=== PATIENT | male | born 1960 | race American Indian/Alaskan Native ===

== ENCOUNTER 2020-10-19 12:43 | Emergency (ER) | payer MEDICARE ==
[2020-10-19] MEDS ORDERED: LIDOCAINE DRIP 2,000 MG/500 ML BAG IV ONE (12:53)
[2020-10-19] MEDS ORDERED: ATROPINE 0.1% (1 MG/10 ML) CARDIAC SYRINGE ONE (12:57)
[2020-10-19] MEDS ORDERED: LIDOCAINE/D5W 2 GM/500 ML (0.4%) DRIP IV ONE (12:57)
[2020-10-19] MEDS ORDERED: SODIUM BICARB 8.4% 50 MEQ/50 ML SYRINGE IV ONE ×2 (12:57→17:50)
[2020-10-19] MEDS ORDERED: AMIODARONE 150 MG/3 ML INJ IV ONE (12:57)
[2020-10-19] MEDS ORDERED: EPINEPHrine 1 MG/10 ML SYRINGE ONE ×2 (12:57→17:50)
[2020-10-19] MEDS ORDERED: LIDOCAINE PF 100 MG/5 ML (CARDIAC SYRINGE) IV ONE (12:57)
[2020-10-19] MEDS ORDERED: DOPamine/D5W 800 MG/250 ML DRIP IV ONE (12:57)
[2020-10-19] MEDS ORDERED: HEPARIN 10,000 UNITS/10 ML VIAL ONE (13:30)
[2020-10-19] MEDS ORDERED: HEPARIN/ 0.45% NACL DRIP 25,000 UNIT/500 ML BAG ONE (13:30)
[2020-10-19] MEDS ORDERED: NORepinephrine/NS 4 MG-250 ML 4 MG/250 ML BAG IV ONE (13:30)
[2020-10-19] MEDS ORDERED: HEPARIN 10,000 UNITS/10 ML VIAL IV ONE (13:31)
[2020-10-19] MEDS ORDERED: ASPIRIN 325 MG TAB FEEDTUBE ONE (13:32)
--- NOTE | 2020-10-19 13:37 | Emergency Department Report ---
HPI - General Chief Complaint: Cardiac Arrest/CPR - HPI HPI: Room 22 The patient is a 61-year-old male brought in by private vehicle in cardiac arrest. Per the person that brought the patient to the hospital they had been talking when he looked over the patient had lost consciousness and had sonorous respirations. Patient was brought to the emergency department by private vehicle and immediately rushed back to her room. ACLS protocols were initiated and the patient was intubated by myself. Patient had several rounds of fine V. fib requiring defibrillation. There were multiple ROSC's which eventually became bradycardic and then PEA. Patient was eventually paced transcutaneously and with pressors was found to have a BP of 120/100. Cardiology was consulted and the decision to take the patient to the [facility] was made The person that brought the patient in with the patient's cousin. He states that the patient was in his usual state of health not complaining about any pain. States that they were driving in the car laughing and joking and then he noticed that the patient was no longer speaking. He shook the patient and the patient appeared to come to but then slumped back over. The cousin states that he threw some water in the patient's face when the patient did not respond to control to the emergency department ED Past Medical Hx - Past Medical History Previous Medical History?: No - Surgical History Past Surgical History?: No - Family History Family history: no significant - Social History Smoking Status: Unknown if ever smoked Substance Use Type: None ED Review of Systems ROS: Stated complaint: CARDIAC ARREST Other details as noted in HPI Comment: Unobtainable due to pts medical conditions Physical Exam - Physical Exam Physical Exam: GENERAL: The patient is well-developed well-nourished male lying on stretcher unresponsive. [] HEENT: Normocephalic. Atraumatic. NECK: Trachea midline CHEST/LUNGS: No respirations. Breath sounds equal bilaterally after intubation by myself HEART/CARDIOVASCULAR: No heart sounds ABDOMEN: Abdomen is soft SKIN: There is no rash. There is no edema. There is no diaphoresis. NEURO: GCS 3 MUSCULOSKELETAL: There is no evidence of acute injury. ED Course - Consultations Consultation #1: 10/19/20 13:24 Case discussed with foreign exchange student coordinator Dr. Steward- will take to [facility]. Heparin and aspirin Consultation #2: 10/19/20 13:42 Patient lost pulse. When pacer was turned off, the underlying rhythm revealed asystole, further resuscitative efforts deemed futile. Patient - Intubation Time Out Performed: No Laryngoscope: fiberoptic video scope Size: 3 Assist Device Used: fiberoptic device ET Tube Size: 8 Tube Secured Depth (cm): 24 Tube Secured Location: lips Tube Placement Confirmation: visualized tube passing t, equal breath sounds bilat, no breath sounds over epi Intubation Complications: other (First attempt led to esophageal intubation. Second attempt done using glidescope was successful) ED Medical Decision Making - Differential Diagnosis Cardiac arrest Critical care attestation.: If time is entered above; I have spent that time in minutes in the direct care of this critically ill patient, excluding procedure time. ED Disposition Clinical Impression: Cardiac arrest Disposition: DC-20 Is pt being admited?: No Does the pt Need Aspirin: No Condition: Poor Time of Disposition: 13:53 (Patient )
[2020-10-19] MEDS ORDERED: HEPARIN/ 0.45% NACL DRIP 25,000 UNIT/500 ML BAG IV SCH (14:00)
[2020-10-19] MEDS ORDERED: NORepinephrine/NS 4 MG-250 ML 4 MG/250 ML BAG IV SCH (14:00)
[2020-10-19] MEDS ORDERED: DEXTROSE 50% IN WATER (25GM) 50 ML SYRINGE IV ONE (17:50)
== END 2020-10-19 19:42 ==
LOC: ED 12:43
DX: I46.9 Cardiac arrest, cause unspecified (principal)
CPT/HCPCS: 31500; 51702; 92950; 99285; J0171; J0282; J0461; J1265; J1644; J2001; 94002